=== PATIENT | male | born 1990 | race African-American/Black ===

== ENCOUNTER 2019-01-05 19:11 | Inpatient (IN) | payer SELFPAY ==
[~2019-01-05] VITALS: Ht 185.4 cm; Wt 193.8 kg
[~2019-01-05 19:11] MED LIST: ALDACTONE 25MG25 M1 PO; COREG 25MG25 MG/TAB PO; KLOR-CON M2020 MEQ PO; LASIX 40MG TABL40 MG PO; PRINIVIL10 MG PO
[2019-01-05] MEDS ORDERED: MEVACOR 20M20 MG/TAB PO (19:46)
[2019-01-05 20:47] LABS: BASO % 0.3 % (0.0-2.0); EOS % 0.1 % (0-4.0); GRAN # 9.2 (1.4-6.5); HEMATOCRIT 43.7 % (42.0-52.0); HEMOGLOBIN 14.1 g/dl (13.5-18.0); LYMPH # 1.1 (1.2-3.4); LYMPH % 9.2 % (20.0-51.0); MEAN CELL VOLUME 66 fl (80.0-100.0); MEAN CORPUSCULAR HEMOGLOBIN 21 pg (27.0-31.0); MEAN CORPUSCULAR HGB CONC 32 g/dl (33.0-37.0); MONO # 1.1 (0.1-0.6); MONO % 9.9 % (1.7-9.3); PLATELET COUNT 197 K/mm3 (130-400); RED BLOOD COUNT 6.59 M/mm3 (4.20-5.60); REDCELL DISTRIBUTION WIDTH-CV 21.1 % (11.5-14.5)
[2019-01-05 21:02] LABS: ALBUMIN 3.8 gm/dL (3.5-5.0); BILIRUBIN,TOTAL 4.3 mg/dL (0.0-1.0); CALCIUM 9.2 mg/dL (8.4-10.2); CREATININE, serum 1.61 (0.66-1.25); POTASSIUM 5.2 mmol/L (3.4-5.0); TOTAL PROTEIN 7.6 gm/dL (6.4-8.2)
[2019-01-05 21:28] LABS: C-REACTIVE PROTEIN 15.9 mg/dL (0.0-0.9); TROPONIN-I 1.61 ng/mL (0.000-0.035)
--- NOTE | 2019-01-05 21:58 | NUR ---
RECEIVED REPORT FROM VIRIDIANA MONGE IN ER.
--- NOTE | 2019-01-05 23:22 | NUR ---
PT ARRIVES TO ICU 7. PT TRANSFERS SELF TO ICU BED. STEADY GAIT NOTED. PT STATES A LITTLE SHOB WITH AMBULATION. NO ACUTE S/S OF RESP DISTRESS NOTED. PT ON RA. 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 CALL LIGHT EDUCATION GIVEN AND REMINDER TO CALL IF NEEDING TO GET OOB FOR FALL PREVENTION, VERBALIZED UNDERSTANDING. NITRO GTT INFUSING AT 40MCG/MIN UPON ARRIVAL FROM ER. INFUSING WITHIN DIFFICULTIES. PT COOPERATIVE WITH CARE. MOOD PLEASANT. BSC BROUGHT TO BEDSIDE FOR LATER USE.
[2019-01-05 23:31] VITALS: O2SAT 97
[2019-01-05 23:33] VITALS: O2SAT 93
[2019-01-05 23:36] VITALS: O2SAT 97
[2019-01-05 23:37] VITALS: O2SAT 99
[2019-01-05 23:38] VITALS: O2SAT 99
[2019-01-05] MEDS ORDERED: PRINIVIL20 MG PO (23:39)
[2019-01-05 23:40] VITALS: BP 146/115; PULSE 79; TEMP 98.6
[2019-01-06] VITALS (460 sets, daily range): BP systolic 116–177; BP diastolic 77–125; PULSE 62–84; TEMP 97.8–99; O2SAT 69–100
--- NOTE | 2019-01-06 00:19 | NUR ---
DR WALTERS AT BEDSIDE FOR ASSESSMENT AND TO DISCUSS POC WITH PT.
--- NOTE | 2019-01-06 01:06 | NUR ---
DR WALTERS NOTIFIED OF TROPONIN TREND AND SBP. SEE MAR FOR ORDERS.
[2019-01-06 02:46] LABS: MUCOUS Present /lpf; PH 6 (5-8); SQUAMOUS EPITHELIAL None Seen /hpf; URINE APPEARANCE Clear; URINE BACTERIA None Seen /hpf; URINE BILIRUBIN Negative (NEGATIVE); URINE BLOOD 1+ (NEGATIVE); URINE COLOR Yellow; URINE GLUCOSE Negative (NEGATIVE); URINE KETONE Negative (NEGATIVE); URINE LEUKOCYTE ESTERASE Negative (NEGATIVE); URINE NITRATE Negative (NEGATIVE); URINE PROTEIN(semi-quant) 2+ (NEGATIVE); URINE RBC 0-2 /hpf; URINE UROBILINOGEN Negative (NEGATIVE); URINE WBC 0-2 /hpf
[2019-01-06 02:52] LABS: COLLECTION METHOD CLEAN CATCH
[2019-01-06 05:52] LABS: BASO % 0.1 % (0.0-2.0); GRAN # 8.8 (1.4-6.5); HEMATOCRIT 40.5 % (42.0-52.0); HEMOGLOBIN 12.8 g/dl (13.5-18.0); LYMPH % 8.8 % (20.0-51.0); MEAN CELL VOLUME 67 fl (80.0-100.0); MEAN CORPUSCULAR HEMOGLOBIN 21 pg (27.0-31.0); MEAN CORPUSCULAR HGB CONC 32 g/dl (33.0-37.0); MONO % 9.6 % (1.7-9.3); PLATELET COUNT 155 K/mm3 (130-400); RED BLOOD COUNT 6.05 M/mm3 (4.20-5.60); REDCELL DISTRIBUTION WIDTH-CV 20.8 % (11.5-14.5)
[2019-01-06 06:02] LABS: ALBUMIN 3.3 gm/dL (3.5-5.0); BILIRUBIN,TOTAL 3.7 mg/dL (0.0-1.0); CALCIUM 8.9 mg/dL (8.4-10.2); CHOLESTEROL RISK RATIO 7.3; CREATININE, serum 1.61 (0.66-1.25); MAGNESIUM 1.7 mg/dL (1.6-2.3); POTASSIUM 4.7 mmol/L (3.4-5.0); TOTAL PROTEIN 6.7 gm/dL (6.4-8.2)
--- NOTE | 2019-01-06 06:17 | NUR ---
SPOKE WITH ISRA QUIROZ ABOUT PT HAVING A SPUTUM CUP AT BEDSIDE THAT LOOKS BLOODY. NEW ORDERS RECEIVED. EDUCATED PT ON SPUTUM COLLECTION CUP, VERBALIZED UNDERSTANDING. SPUTUM CUP PLACED WITHIN REACH. PT STATES HEADACHE IS DECREASING WITH THE DECREASE IN NITRO GTT, SEE IV GTT TITRATIONS. DENIES ANY CP/PRESSURE.
[2019-01-06 06:29] LABS: TROPONIN-I 1.5 ng/mL (0.000-0.035)
--- NOTE | 2019-01-06 07:00 | NUR ---
BEDSIDE REPORT RECEIVED FROM VIRIDIANA BURNS. PATIENT LYING IN BED WITH NO COMPLAINTS. NITRO INFUSING AT 15 MCG/MIN. WILL CONTINUE TO TRY TO TITRATE THAT DOWN. CARE ASSUMED AT THIS TIME.
--- NOTE | 2019-01-06 10:11 | NUR ---
DORIS duarte met with the patient to discuss a discharge plan. The patient lives in [place] with his mother. The patient has crutches and reports independence with ADLs. The patient is to meet with a new PCP at [facility] next week and patient receives medications from [facility] with no difficulties. The patient is self-pay and may need a medication voucher. DORIS duarte contacted Financial Counselor and will visit patient. The patient plans to return home upon discharge with one of his siblings providing transportation. rehabilitation services director will continue to follow to ensure a safe discharge.
--- NOTE | 2019-01-06 10:35 | NUR ---
Provided Heart Failure book with Zone chart for patient. Education regarding daily weights, low sodium diet, activity level, medication compliance, and follow up appointments provided. Went through zone chart with patient and he verbalized understanding. Pt denies further questions. Pt does not have a scale at home, pt exceeds weight limit on scales that could be provided from Heart failure program, talked to Nevaeh Bravo about obtaining a bariatric scale for pt success with monitoring daily weights.
--- NOTE | 2019-01-06 16:30 | NUR ---
Patient arrived to room 318 from ICU at this time, he is alert/oriented, vital signs stable, denies needs, will continue to monitor
--- NOTE | 2019-01-06 21:24 | NUR ---
Shift assessment complete. Pt denies SOA, pain. INT intact in L AC. Bilat LE with 2-3+ edema. Abdomen round and firm. Reports having a BM yesterday. Encouraged pt to remove his compression stockings while he is in bed.
[2019-01-07 02:59] VITALS: BP 150/97; PULSE 66; TEMP 98
[2019-01-07 06:47] LABS: BASO % 0.2 % (0.0-2.0); EOS % 0.3 % (0-4.0); GRAN % 79.6 % (42.2-75.2); HEMATOCRIT 40.2 % (42.0-52.0); HEMOGLOBIN 12.9 g/dl (13.5-18.0); LYMPH # 0.9 (1.2-3.4); LYMPH % 8.1 % (20.0-51.0); MEAN CELL VOLUME 67 fl (80.0-100.0); MEAN CORPUSCULAR HEMOGLOBIN 22 pg (27.0-31.0); MEAN CORPUSCULAR HGB CONC 32 g/dl (33.0-37.0); MONO # 1.3 (0.1-0.6); MONO % 11.4 % (1.7-9.3); PLATELET COUNT 182 K/mm3 (130-400); REDCELL DISTRIBUTION WIDTH-CV 21.4 % (11.5-14.5)
[2019-01-07 07:04] LABS: ALBUMIN 3.2 gm/dL (3.5-5.0); BILIRUBIN,TOTAL 3.1 mg/dL (0.0-1.0); CALCIUM 8.7 mg/dL (8.4-10.2); CREATININE, serum 1.55 (0.66-1.25); POTASSIUM 3.9 mmol/L (3.4-5.0); TOTAL PROTEIN 6.4 gm/dL (6.4-8.2)
--- NOTE | 2019-01-07 07:55 | NUR ---
Pt had uneventful night. Encouraged pt to take off his support stockings while in bed. Rest well through the night. Call light in reach. End of shift report given to oncoming nurse.
[2019-01-07 08:34] VITALS: BP 144/89; PULSE 69; TEMP 97.7
--- NOTE | 2019-01-07 10:01 | NUR ---
Assessment completed, alert/oriented, vital signs stable, denies any chest pain or disocmfort, stated he breathing is much easier today, patient report putting out a lot of urine/ it does not look like anyone has been doing I/O and I have insturcted patient ot use urinals if he can so we can measure, hear RRR/ SR on tele, lungs CTA/ diminished, patient is very obese and heart and lungs sounds are very distant, he is very compliant with his diet and fluid restriction and doing well, sitting up in bed at thi stime, denies other needs, a.m meds given
[2019-01-07 10:59] VITALS: BP 121/89; PULSE 64; TEMP 97
[2019-01-07 16:53] VITALS: BP 137/99; PULSE 65; TEMP 97.7
--- NOTE | 2019-01-07 20:00 | NUR ---
Assessment complete. Pt sitting at side of bed. Alert and oriented. Denies any pain or discomfort at this time. Ambulatory to/from restroom. Pt uses urinal in BR and understands strick I/Os. Pt understands POC. Medications administered as ordered. INT to LFA patent, flushed, dressing CDI. On tele monitor, leads checked and in place. Needs met at this time. Call light within reach.
[2019-01-07 20:47] VITALS: BP 135/87; PULSE 65; TEMP 98.4
[2019-01-07 23:44] VITALS: BP 138/68; PULSE 61; TEMP 99.1
[2019-01-08] VITALS (7 sets, daily range): BP systolic 110–137; BP diastolic 67–111; PULSE 64–72; TEMP 97.7–98.7
--- NOTE | 2019-01-08 05:11 | NUR ---
Pt uneventful during this shift. No complaints made. Medications given as ordered. Needs met. Call light within reach.
--- NOTE | 2019-01-08 07:08 | NUR ---
Report given to VIRIDIANA Giles.
[2019-01-08 08:28] LABS: BASO % 0.2 % (0.0-2.0); EOS # 0.1 (0.0-0.7); EOS % 0.6 % (0-4.0); GRAN # 8.2 (1.4-6.5); HEMATOCRIT 40.7 % (42.0-52.0); LYMPH # 0.8 (1.2-3.4); LYMPH % 8.1 % (20.0-51.0); MEAN CELL VOLUME 67 fl (80.0-100.0); MEAN CORPUSCULAR HEMOGLOBIN 21 pg (27.0-31.0); MEAN CORPUSCULAR HGB CONC 32 g/dl (33.0-37.0); MONO # 1.2 (0.1-0.6); MONO % 11.7 % (1.7-9.3); PLATELET COUNT 172 K/mm3 (130-400); RED BLOOD COUNT 6.12 M/mm3 (4.20-5.60); REDCELL DISTRIBUTION WIDTH-CV 20.9 % (11.5-14.5)
[2019-01-08 08:42] LABS: ALBUMIN 3.3 gm/dL (3.5-5.0); BILIRUBIN,TOTAL 3.4 mg/dL (0.0-1.0); CALCIUM 8.8 mg/dL (8.4-10.2); CREATININE, serum 1.35 (0.66-1.25); POTASSIUM 3.8 mmol/L (3.4-5.0); TOTAL PROTEIN 6.7 gm/dL (6.4-8.2)
--- NOTE | 2019-01-08 08:57 | NUR ---
Pt doing well. Assessment completed. A/O with VSS. Denies pain at this time. Hypertension controlled. 3+ edems to BLE and feet. IV INT to left forearm, CD&I. No concerns at this time. Call light within reach, will continue to monitor
--- NOTE | 2019-01-08 11:56 | NUR ---
Pt doing well. Denies pain at this time. No concerns. Call light within reach, will continue to monitor
--- NOTE | 2019-01-08 14:20 | NUR ---
Pt doing fine. In room getting cleaned up. Is independent with cares. Denies pain or needs at this time. Call light within reach, will continue to monitor
--- NOTE | 2019-01-08 20:52 | NUR ---
Sitting on edge of bed. Denies pain. Has had productive cough of red tinged mucus for about a wek, small amount. 3+ bilat LE edema noted.
--- NOTE | 2019-01-08 23:45 | NUR ---
Sitting up in bed with eyes open looking at phone. Denies complaints, concerns, or needs.
--- NOTE | 2019-01-09 02:25 | NUR ---
Lying in bed with HOB elevated. Eyes closed. Respirations even and unlabored. No signs or symptoms of discomfort noted.
[2019-01-09 03:39] VITALS: BP 120/67; PULSE 63; TEMP 98.7
[2019-01-09 07:18] LABS: BASO % 0.2 % (0.0-2.0); EOS # 0.1 (0.0-0.7); GRAN # 6.8 (1.4-6.5); GRAN % 75.2 % (42.2-75.2); HEMATOCRIT 38.7 % (42.0-52.0); HEMOGLOBIN 12.4 g/dl (13.5-18.0); LYMPH # 0.8 (1.2-3.4); LYMPH % 8.7 % (20.0-51.0); MEAN CELL VOLUME 67 fl (80.0-100.0); MEAN CORPUSCULAR HEMOGLOBIN 21 pg (27.0-31.0); MEAN CORPUSCULAR HGB CONC 32 g/dl (33.0-37.0); MONO # 1.3 (0.1-0.6); MONO % 14.5 % (1.7-9.3); PLATELET COUNT 181 K/mm3 (130-400); RED BLOOD COUNT 5.82 M/mm3 (4.20-5.60); REDCELL DISTRIBUTION WIDTH-CV 21.1 % (11.5-14.5)
[2019-01-09 07:23] VITALS: BP 150/98; PULSE 67; TEMP 98.4
[2019-01-09 07:24] LABS: CALCIUM 8.7 mg/dL (8.4-10.2); CREATININE, serum 1.33 (0.66-1.25); POTASSIUM 3.6 mmol/L (3.4-5.0)
--- NOTE | 2019-01-09 08:30 | NUR ---
Pt is awake and A/Ox4, sitting up in the recliner. He denies pain or discomfort. He reports "feeling good." Saline lock to left AC is free of complications. Pt continues to have 3+ edema to BLE, encouarged to keep legs elevated when resting. Pt expressed understanding. Pt denies any other needs, will montitor.
--- NOTE | 2019-01-09 11:27 | NUR ---
LAURA met with the patient to follow up. The patient reports that he is doing okay and hopeful to go home today. He states that he still plans to return home with his mother upon discharge and will probably need assistance with medications. He had no other questions or concerns for LAURA at this time. LAURA to continue to follow.
[2019-01-09 11:57] VITALS: BP 121/75; PULSE 73; TEMP 98
[2019-01-09 16:00] VITALS: BP 143/91; PULSE 61; TEMP 99.8
--- NOTE | 2019-01-09 17:46 | NUR ---
Pt has had an uneventful day. He continues to deny pain or any needs. Will monitor.
[2019-01-09 20:13] VITALS: BP 126/79; PULSE 65; TEMP 98.2
--- NOTE | 2019-01-09 20:30 | NUR ---
Initial shift assessment done- denies pain- B/P WNL,, Tele on, Understands to save urine so that we can measure- states understanding, Up on own- steady on feet, very pleasant , alert/oriented- on droplet isolation
[2019-01-09 23:21] VITALS: BP 106/66; PULSE 71; TEMP 98.3
[2019-01-10 04:00] VITALS: BP 123/53; PULSE 71; TEMP 97.9
--- NOTE | 2019-01-10 06:18 | NUR ---
Quiet night- did sleep fairly well last night-- was medicated with Valium x3 during this shift per detox protocol, VSS
--- NOTE | 2019-01-10 06:21 | NUR ---
Quiet night- B/P good throughout the night-- has 3300 cc out of urine during shift
[2019-01-10 06:48] LABS: BASO % 0.4 % (0.0-2.0); EOS # 0.2 (0.0-0.7); GRAN # 6.3 (1.4-6.5); GRAN % 73.2 % (42.2-75.2); HEMATOCRIT 39.6 % (42.0-52.0); HEMOGLOBIN 12.3 g/dl (13.5-18.0); LYMPH # 0.9 (1.2-3.4); LYMPH % 10.1 % (20.0-51.0); MEAN CELL VOLUME 68 fl (80.0-100.0); MEAN CORPUSCULAR HEMOGLOBIN 21 pg (27.0-31.0); MEAN CORPUSCULAR HGB CONC 31 g/dl (33.0-37.0); MONO # 1.2 (0.1-0.6); MONO % 13.9 % (1.7-9.3); PLATELET COUNT 218 K/mm3 (130-400)
[2019-01-10 06:52] LABS: CALCIUM 8.8 mg/dL (8.4-10.2); CREATININE, serum 1.31 (0.66-1.25); MAGNESIUM 1.7 mg/dL (1.6-2.3); POTASSIUM 3.8 mmol/L (3.4-5.0)
[2019-01-10 08:03] VITALS: BP 149/97; PULSE 70; TEMP 98.5
[2019-01-10] MEDS ORDERED: COREG 25MG25 MG/TAB PO (12:49)
[2019-01-10] MEDS ORDERED: LIPITOR 40MG TA40 MG PO (12:49)
[2019-01-10] MEDS ORDERED: ASPIRIN E.C. 8181 MG PO (12:50)
[2019-01-10] MEDS ORDERED: LASIX 40MG TABL40 MG PO (12:50)
[2019-01-10] MEDS ORDERED: ALDACTONE 25MG25 M1 PO (12:54)
[2019-01-10 13:23] VITALS: BP 118/77; PULSE 66; TEMP 97.8
--- NOTE | 2019-01-10 15:53 | NUR ---
Received a call from [facility] that Pt was going to be dischaged today and that he needed a medicine voucher. SW located accepting pharmacy: [facility], contacted [employer] [facility]) at [phone] to arrange for picking belt operator and faxed copy of the voucher, and script to pharmacy.
--- NOTE | 2019-01-10 16:49 | NUR ---
DC instructions reviewed. Prescriptions faxed to [facility] pharmacy Voucher sent with patient.
--- NOTE | 2019-01-10 17:41 | NUR ---
dc home via .
== END 2019-01-10 17:30 | disposition home or self-care (01) | DRG 292 ==
LOC: COL.ER 19:11 → ICU 21:43 → MEDICAL 01-06 16:04
PROVIDERS: Emergency Medicine; Nurse Practitioner Family; Physician Assistant; Student in an Organized Health Care Education/Training Program; ADMIT Student in an Organized Health Care Education/Training Program
DX: I11.0 Hypertensive heart disease with heart failure (principal); N17.9 Acute kidney failure, unspecified; I16.1 Hypertensive emergency; I50.22 Chronic systolic (congestive) heart failure; I42.0 Dilated cardiomyopathy; E78.5 Hyperlipidemia, unspecified; B97.89 Other viral agents as the cause of diseases classified elsewhere; E66.01 Morbid (severe) obesity due to excess calories; I08.3 Combined rheumatic disorders of mitral, aortic and tricuspid valves; E80.6 Other disorders of bilirubin metabolism
CPT/HCPCS: 99223-AI; 99232-AI; 99239; J1644; J1650; J1940

== ENCOUNTER 2019-12-15 14:25 | Emergency (ER) | payer SELFPAY ==
[~2019-12-15] VITALS: Ht 185.4 cm; Wt 172.7 kg
[~2019-12-15 14:25] MED LIST changes: +ASPIRIN E.C. 8181 MG PO; +LIPITOR 40MG TA40 MG PO; +MEVACOR 20M20 MG/TAB PO; +PRINIVIL20 MG PO
[2019-12-15 14:37] VITALS: TEMP 97.8
[2019-12-15 15:34] LABS: BASO % 0.5 % (0.0-2.0); EOS # 0.2 (0.0-0.7); GRAN # 5.4 (1.4-6.5); GRAN % 72.7 % (42.2-75.2); HEMATOCRIT 38.9 % (42.0-52.0); HEMOGLOBIN 12.3 g/dl (13.5-18.0); LYMPH % 13.2 % (20.0-51.0); MEAN CELL VOLUME 72 fl (80.0-100.0); MEAN CORPUSCULAR HEMOGLOBIN 23 pg (27.0-31.0); MEAN CORPUSCULAR HGB CONC 32 g/dl (33.0-37.0); MEAN PLATELET VOLUME 10.1 fl (7.4-10.4); MONO # 0.8 (0.1-0.6); MONO % 10.3 % (1.7-9.3); PLATELET COUNT 245 K/mm3 (130-400); RED BLOOD COUNT 5.37 M/mm3 (4.20-5.60); REDCELL DISTRIBUTION WIDTH-CV 21.6 % (11.5-14.5)
[2019-12-15 15:37] LABS: INR 2.2 (0.8-3.0); PROTHROMBIN TIME 24.3 SECONDS (9.7-12.8)
[2019-12-15 15:42] LABS: CALCIUM 9.2 mg/dL (8.4-10.2); CREATININE, serum 1.26 (0.66-1.25); TOTAL PROTEIN 8.6 gm/dL (6.4-8.2)
[2019-12-15 16:15] LABS: TROPONIN-I 0.045 ng/mL (0.000-0.035)
[2019-12-15] MEDS ORDERED: LASIX 40MG TABL40 MG PO (16:24)
[2019-12-15 17:26] VITALS: BP 155/116; PULSE 98
== END 2019-12-15 17:27 | disposition home or self-care (01) ==
LOC: COL.ER 14:25
PROVIDERS: Emergency Medicine
DX: J81.1 Chronic pulmonary edema (principal); I50.9 Heart failure, unspecified; I11.0 Hypertensive heart disease with heart failure; E87.6 Hypokalemia; E78.5 Hyperlipidemia, unspecified; Z79.82 Long term (current) use of aspirin
CPT/HCPCS: J1940